=== PATIENT | male | born 1995 | race Caucasian/White ===

== ENCOUNTER → 2023-11-17 11:33 | Outpatient (REF) | payer OTHER, SELFPAY | LOC: REG 11:33 | PROVIDERS: ATTENDING PHYSICIAN Family Medicine | DX: M54.2 Cervicalgia (principal) | CPT/HCPCS: 72050 ==

== ENCOUNTER 2024-01-12 14:28 | Emergency (ER) | payer OTHER, SELFPAY ==
[2024-01-12 14:30] VITALS: BP 168/104
[2024-01-12 14:50] LABS: % Basophils 0.8 % (0-2); % Eosinophils 0.8 % (0-6); % Immature Granulocytes 0.4 % (0-0.5); % Lymphocytes 22.2 % (20.5-51.1); % Neutrophils 68.8 % (42.2-75.2); Absolute Lymphocytes 1.2 10^3/uL (1.2-3.4); Absolute Monocytes 0.4 10^3/uL (0.1-0.6); Absolute Neutrophils 3.6 10^3/uL (1.4-6.5); Hematocrit 43.3 % (39.0-52.0); Hemoglobin 15.6 g/dL (13.0-18.0); Mean Corpuscular Hgb 31.6 pg (27.0-31.0); Mean Corpuscular Volume 87.7 fL (80.0-94.0); Mean Platelet Volume 10.2 fL (7.4-10.4); Nucleated Red Blood Cells % 0 % (-); Platelet Count 160 10^3/uL (130-400); Red Blood Cell Count 4.94 10^6/uL (4.70-6.10); Red Cell Dist. Width 11.5 % (11.5-14.5); White Blood Cell Count 5.3 10^3/uL (4.8-10.8)
[2024-01-12 15:01] LABS: ALT (SGPT) 28 U/L (0-50); AST (SGOT) 26 U/L (17-59); Albumin 5.2 g/dl (3.5-5.0); Alkaline Phosphatase 58 U/L (38-126); Blood Urea Nitrogen 12 mg/dl (9-20); Carbon Dioxide 28 mmol/L (22-30); Chloride 102 mmol/L (98-107); Glucose 130 mg/dl (70-99); Potassium 4.6 mmol/L (3.5-5.1); Sodium 141 mmol/L (135-145); Total Bilirubin 0.7 mg/dl (0.2-1.3); Total Protein 7.6 g/dl (6.3-8.2); eGFR > 60.00
[2024-01-12 15:13] LABS: Troponin I < 0.012 ng/ml
[2024-01-12 16:35] LABS: D-Dimer < 0.27 ug/mlFEU (0.00-0.50)
--- NOTE | 2024-01-12 17:07 | ED.GENMED ---
History of Present Illness
General
Chief Complaint: Chest Pain
Source: patient
Exam Limitations: none
Time Seen by Provider: 01/12/24 15:19
Nursing documentation reviewed up to this point in time: agreed with
History of Present Illness
History of Present Illness:
Patient to ED with complaint of ant. chest pain. Symptoms started last night while lying in bed. Reports SOB. Had a similar episode 1 week ago. No aggravating or alleviating factors. Pain does not radiate. No associated n/v/diaphoresis. Brought
self to ED for eval. Currently pain free
Past History
Past History
ED Past Medical History: None
ED Past Surgical History: None
Social History
Tobacco: Non-smoker
Alcohol: None
Review of Systems
Review of Systems
Allergies reviewed?: Yes
All Other Systems: ROS reviewed and negative except as documented in HPI and ROS
Constitutional: Reports no symptoms
EENT: Reports no symptoms
Respiratory: Reports trouble breathing
Cardiac: Reports chest pain
ABD/GI: Reports no symptoms
: Reports no symptoms
Musculoskeletal: Reports no symptoms
Skin: Reports no symptoms
Neurological: Reports no symptoms
Psychiatric: Reports no symptoms
Phy Exam
General Physical Exam
General Presentation: well appearing and no apparent distress
General age: appears stated age
General Skin: warm and dry
General Habitus: normal
General Mental: alert
Cardiovascular Exam
Cardiovascular Exam: regular rate/rhythm and no edema
Pulmonary Exam
Pulmonary Exam: lungs clear, no respiratory distress (Pulse ox 98% RA) and chest non tender
Gastrointestinal Exam
Gastrointestinal Exam: non tender, soft and no organomegaly
Musculoskeletal Exam
Musculoskeletal Exam: full ROM and neuro vasc intact
Skin Exam
Skin Exam: normal color, warm/dry and no rash
Psychiatric Exam
Psychiatric Exam: normal mood/affect
Scores
Heart Score for Chest Pain Patients
STEMI patient?: No
History: Slightly or Non-Suspicious
ECG: Normal
Age: </= 45 years
Risk Factors: No Risk Factors
Troponin: </= Normal Limit
Heart Score for Chest Pain Patients: 0
Heart Score Risk: 2.5% MACE over next 6 weeks
Course
Orders/Labs/Results
Orders:
Orders
01/12/24 14:29
ECG [Electrocardiogram (*1)] Urgent
Reason for Study: Chest Pain
01/12/24 14:30
EKG- Treatment ONCE
01/12/24 14:33
Electrocardiogram (*1) Urgent
Reason for Study: Chest Pain
01/12/24 14:34
EKG- Treatment ONCE
01/12/24 14:39
Complete Blood Count/With Diff Urgent
Comprehensive Metabolic Panel Urgent
Troponin I Urgent
01/12/24 15:53
CR Chest - 2 Views Urgent
Comment:
Reason For Exam: pain, SOB
01/12/24 16:05
D-Dimer Urgent
Abnormal Lab Results
01/12/24
14:39
MCH 31.6 H pg
(27.0-31.0)
Glucose 130 H mg/dl
(70-99)
Albumin 5.2 H g/dl
(3.5-5.0)
01/12/24 14:39
01/12/24 14:39
Vital Signs
Initial and Last Documented VS:
Initial Vital Signs
Pulse Resp BP Pulse Ox
102 18 168/104 96
01/12/24 14:30 01/12/24 14:30 01/12/24 14:30 01/12/24 14:30
Last Documented Vital Signs
Pulse Resp BP Pulse Ox
75 20 168/104 97
01/12/24 16:45 01/12/24 16:45 01/12/24 14:30 01/12/24 16:45
*Radiology
Radiology exam reviewed: radiology read reviewed
*Pulse Oximetry
Patient hypoxic: no
*EKG
Interpretation: normal
Rate: normal
Rhythm: sinus
*Critical Care Note
Total Time (30-74mins, 75-104mins- exclusive of procedures): Not Applicable
ED Attending Note
-
Portions of this chart may have been created with voice recognition software.� Occasional wrong word or��sound alike� substitutions may have occurred due to the inherent limitations of voice recognition software.
Discharge Plan
Departure
Patient Disposition: Home (Routine Discharge)
Date of Disposition: 01/12/24
Time of Disposition: 17:10
Patient with high blood pressure during this ER visit?: No
Condition: Good
Covid-19: Not Applicable
Discharge Problem:
Chest pain
Instructions: Chest Pain That Is Not Caused by the Heart (DC), Chest Pain PCP Follow Up
Prescriptions:
New
omeprazole 40 mg capsule,delayed release(DR/EC)
40 mg PO DAILY Qty: 14 0RF
No Action
cyclobenzaprine 10 MG tablet
10 mg PO BIDPRN PRN (Reason: spasm) Qty: 13 0RF
Referrals:
Deyvi Padron MD [Family Provider] - Follow up in 2-3 days
Interventions
Interventions:
*Risk Screen - Suicide Last Done: 01/12/24 14:30
*General Assessment Last Done: 01/12/24 14:30
*Neglect/Abuse Screening Last Done: 01/12/24 14:30
ED- Cardiac Assessment Last Done: 01/12/24 16:50
Discharge Date and Time
Print Language: SINHALA
== END 2024-01-12 17:18 | disposition home or self-care (01) ==
LOC: EMR 14:28
PROVIDERS: Nurse Practitioner; EMERGENCY PHYSICIAN Emergency Medicine; FAMILY PHYSICIAN Family Medicine
DX: R07.89 Other chest pain (principal); R06.02 Shortness of breath; Z88.0 Allergy status to penicillin; Z88.2 Allergy status to sulfonamides
CPT/HCPCS: 99283; 71046; 80053; 84484; 85025; 85379; 93005

== ENCOUNTER 2024-02-29 22:23 | Emergency (ER) | payer OTHER, SELFPAY ==
[2024-02-29 22:26] VITALS: BP 145/83
[2024-02-29 23:27] VITALS: BP 136/76
--- NOTE | 2024-02-29 23:28 | ED.GENMED ---
History of Present Illness
<RO Ashford - Last Filed: 03/01/24 00:29>
General
Chief Complaint: Abdominal Symptoms
Source: patient
Time Seen by Provider: 02/29/24 23:27
Nursing documentation reviewed up to this point in time: agreed with
History of Present Illness
History of Present Illness:
A 28-year-old male presents to the emergency department for vomiting and diarrhea for the last 3 hours. The patient states the vomit was 'black and red sludge'. The patient states the first 2 bouts of vomiting were black and red in the third was
clear watery. The patient also admits to 4 episodes of diarrhea to which he reports is dark brown in consistency. Lastly he also admits to abdominal pain over the last 3 hours which is crampy without radiation. Denies dizziness, chest pain, fever,
chills.
The patient reports no past medical history. However, the patient states that earlier today he had 3 shots of tequila, but he states that he only drinks occasionally, about twice a week. The patient states that he currently takes no daily
medications and admits to taking ibuprofen twice within the last month. The patient denies a travel history or any recent sicknesses or sick contacts.
Past History
<RO Ashford - Last Filed: 03/01/24 00:29>
Past History
ED Past Medical History: None
ED Past Surgical History: None
Social History
Tobacco: Non-smoker
Alcohol: Occasional
Drug: None
Family History
Family History: Unable to obtain (unknown to patient )
Review of Systems
<RO Ashford - Last Filed: 03/01/24 00:29>
Review of Systems
Constitutional: Reports no symptoms
EENT: Reports no symptoms
Cardiac: Reports no symptoms
ABD/GI: Reports abdominal pain
: Reports no symptoms
Musculoskeletal: Reports no symptoms
Skin: Reports no symptoms
Neurological: Reports no symptoms
Endocrine: Reports no symptoms
Hematologic/Lymphatic: Reports no symptoms
Psychiatric: Reports no symptoms
Phy Exam
<RO Ashford - Last Filed: 03/01/24 00:29>
General Physical Exam
General Presentation: well appearing and no apparent distress
General age: appears stated age
General Skin: warm and dry
General Habitus: normal
General Mental: alert and anxious
General Hydration: appears well hydrated
ENT Exam
ENT Exam: pharynx normal
Eye Exam
Eye Exam: PERRL
Cardiovascular Exam
Cardiovascular Exam: no gallop, no murmur, normal peripheral pulses and other (Tachycardic )
Heart Sounds: normal
Pulmonary Exam
Pulmonary Exam: lungs clear, no respiratory distress, no rales, no crackles, no wheezing and no cough
Gastrointestinal Exam
Gastrointestinal Exam: normal bowel sounds, soft and non distended
Palpation: left upper quadrant: No tenderness, left lower quadrant: No tenderness, right upper quadrant: No tenderness and right lower quadrant: Mild tenderness and Moderate tenderness
Rectal Exam: normal external exam and normal sphincter tone
Guaiac Status: negative
Course
<Juan Francisco Jean [facility] - Last Filed: 03/01/24 00:29>
Orders/Labs/Results
Orders:
Orders
02/29/24 23:16
IV Insert/Care/Rem.- Treatment PRN
02/29/24 23:29
Complete Blood Count/With Diff Urgent
Comprehensive Metabolic Panel Urgent
Lipase Urgent
03/01/24 00:13
0.9% Sodium Chloride 1000 ml [Nss] 1,000 ml IV BOLUS
Pantoprazole [Protonix IV] 80 mg IV NOW STA
03/01/24 00:17
CT Abd/pelvis W Iv Cont Urgent
Comment:
Reason For Exam: abd pain, diarrhea, vomiting blood
Abnormal Lab Results
02/29/24
23:29
MPV 10.5 H fL
(7.4-10.4)
Absolute Neuts (auto) 7.8 H 10^3/uL
(1.4-6.5)
Absolute Lymphs (auto) 1.0 L 10^3/uL
(1.2-3.4)
Neutrophils % 83.7 H %
(42.2-75.2)
Lymphocytes % 10.2 L %
(20.5-51.1)
Glucose 110 H mg/dl
(70-99)
Albumin 5.4 H g/dl
(3.5-5.0)
02/29/24 23:29
02/29/24 23:29
Vital Signs
Initial and Last Documented VS:
Initial Vital Signs
Temp Pulse Resp BP Pulse Ox
94.2 F L 114 16 145/83 98
02/29/24 22:26 02/29/24 22:26 02/29/24 22:26 02/29/24 22:26 02/29/24 22:26
Last Documented Vital Signs
Temp Pulse Resp BP Pulse Ox
98.7 F 94 16 137/75 96
03/01/24 03:13 03/01/24 03:13 03/01/24 03:13 03/01/24 03:13 03/01/24 03:13
<Sarai Soliz DO - Last Filed: 03/01/24 04:14>
Orders/Labs/Results
Orders:
Orders
02/29/24 23:16
IV Insert/Care/Rem.- Treatment PRN
02/29/24 23:29
Complete Blood Count/With Diff Urgent
Comprehensive Metabolic Panel Urgent
Lipase Urgent
03/01/24 00:13
0.9% Sodium Chloride 1000 ml [Nss] 1,000 ml IV BOLUS
Pantoprazole [Protonix IV] 80 mg IV NOW STA
03/01/24 00:17
CT Abd/pelvis W Iv Cont Urgent
Comment:
Reason For Exam: abd pain, diarrhea, vomiting blood
Abnormal Lab Results
02/29/24
23:29
MPV 10.5 H fL
(7.4-10.4)
Absolute Neuts (auto) 7.8 H 10^3/uL
(1.4-6.5)
Absolute Lymphs (auto) 1.0 L 10^3/uL
(1.2-3.4)
Neutrophils % 83.7 H %
(42.2-75.2)
Lymphocytes % 10.2 L %
(20.5-51.1)
Glucose 110 H mg/dl
(70-99)
Albumin 5.4 H g/dl
(3.5-5.0)
02/29/24 23:29
02/29/24 23:29
Vital Signs
Initial and Last Documented VS:
Initial Vital Signs
Temp Pulse Resp BP Pulse Ox
94.2 F L 114 16 145/83 98
02/29/24 22:26 02/29/24 22:26 02/29/24 22:26 02/29/24 22:26 02/29/24 22:26
Last Documented Vital Signs
Temp Pulse Resp BP Pulse Ox
98.7 F 94 16 137/75 96
03/01/24 03:13 03/01/24 03:13 03/01/24 03:13 03/01/24 03:13 03/01/24 03:13
<RO Ashford - Last Filed: 03/01/24 00:29>
MDM/Problems Addressed
Differential Diagnosis Includes:
unspecified colitis, Gastric ulcer, Salena jaime tear
<RO Ashford - Last Filed: 03/01/24 00:29>
*Critical Care Note
Total Time (30-74mins, 75-104mins- exclusive of procedures): Not Applicable
<Sarai Soliz DO - Last Filed: 03/01/24 04:14>
*Radiology
Radiology exam reviewed: radiology read reviewed (CT of the abdomen pelvis is unremarkable)
*Pulse Oximetry
Patient hypoxic: no
*Educational Therapist Interpretation
Rate: tachycardiac
Interpretation: abnormal
Rhythm: sinus
ED Attending Note
<RO Ashford - Last Filed: 03/01/24 00:29>
-
Portions of this chart may have been created with voice recognition software.� Occasional wrong word or��sound alike� substitutions may have occurred due to the inherent limitations of voice recognition software.
<Sarai Soliz DO - Last Filed: 03/01/24 04:14>
ED Attending Note
Patient seen and examined by attending physician: Yes
I performed the substantive portion of visit, reviewed & personally made and approve the management plan that is documented in note by myself or LOU.: Yes
ED Attending Note:
This is a 28-year-old male with no significant past medical history who presents with somewhat abrupt onset of nonbloody diarrhea, crampy abdominal pain that began around 9 PM tonight then progressed to nausea and reports 2 episodes of vomiting of
black 'sludgelike material' with streaks of red. He then drank some water and vomited an additional time that was productive of only water, no blood streaks. No history of similar episodes in the past. He did present to this ED early January
with complaints of chest pain most noted at nighttime. ED evaluation unremarkable including unremarkable EKG, unremarkable laboratory studies including negative troponin, negative D-dimer. Chest pain thought to be acid reflux and he admits to
significantly reducing NSAID use, significantly reducing alcohol use since then with marked improvement. He does occasionally suffer with some chest pain which generally promptly resolves with antacids/Tums for which he takes perhaps twice per week.
No recent travel. No recent antibiotic use. Takes no anticoagulants.
No close contacts with similar symptoms.
GENERAL: 28-year-old male appears his stated age, awake and alert, appears very mildly anxious but easily communicative. Mother is accompanying.
EYE: anicteric
NECK: Supple, nontender, no meningismus, no significant adenopathy.
ENT: oral mucosa is moist. No rhinorrhea.
CARDIAC: Regular rhythm, mildly tachycardic. no murmur.
LUNGS: Clear breath sounds bilaterally, no acute respiratory distress, no wheezes/rales/rhonchi
ABDOMEN: Soft, nondistended, minimal tenderness right lower quadrant with deep palpation only, no r/g, no cvat. normoactive BS. No palpable masses. Rectal exam performed by PA student under my direct supervision, no stool per vault, heme-negative.
NEUROLOGICAL: Alert and oriented x3, no focal neuro deficits. Gait is steady.
SKIN: Warm and dry, normal color, skin intact. No rash.
MUSCULOSKELETAL: No C/C/E. peripheral pulses are full and equal b/l. No palpable tenderness.
PSYCH: Mildly apprehensive, easily communicative and cooperative.
Concern for acute upper GI bleed, gastritis, acute gastroenteritis, colitis. Appendicitis is less likely.
Noted to be mildly tachycardic otherwise hemodynamically stable. Initial mild hypothermia has promptly resolved upon recheck.
Will check labs, initiate IV fluids as well as IV Protonix.
Will plan for CT abdomen pelvis with IV contrast.
03/01/2024 0313 AM
Patient resting comfortably, has had no return of nausea nor vomiting, no diarrhea since arrival to the ED.
Labs are unremarkable as is CT abdomen pelvis.
Will trial oral fluids.
03/01/2024 0409 AM
Patient tolerating oral fluids well without return of nausea nor abdominal pain or diarrhea.
Will discharge to home with prescription for Protonix.
Recommend limiting diet to clear liquids today, slowly advance as tolerated.
Continue to avoid NSAIDs.
Will refer to GI for follow-up.
Return precautions discussed.
Discharge Plan
Departure
Patient Disposition: Home (Routine Discharge)
Date of Disposition: 03/01/24
Time of Disposition: 04:10
Patient with high blood pressure during this ER visit?: No
Condition: Good
Discharge Problem:
Acute gastroenteritis, possible hematemesis
Instructions: Viral gastroenteritis in adults, Clear Liquid Diet
Prescriptions:
New
pantoprazole [Protonix] 40 mg tablet,delayed release (DR/EC)
40 mg PO DAILY Qty: 30 0RF
No Action
cyclobenzaprine 10 MG tablet
10 mg PO BIDPRN PRN (Reason: spasm) Qty: 13 0RF
omeprazole 40 mg capsule,delayed release(DR/EC)
40 mg PO DAILY Qty: 14 0RF
Referrals:
Nunu Guerrero MD [Active] - Call in 1-3 days for appt
Deyvi Padron MD [Family Provider] - Call in 1-3 days for appt
Interventions
Interventions:
*Risk Screen - Suicide Last Done: 02/29/24 22:26
*Neglect/Abuse Screening Last Done: 02/29/24 22:26
NP-Lynugl-Acutjpymwh Assessment Last Done: 02/29/24 23:39
Discharge Date and Time
Print Language: KINYARWANDA
[2024-02-29 23:30] VITALS: BMI 27.8
[2024-02-29 23:37] LABS: % Basophils 0.3 % (0-2); % Eosinophils 0.1 % (0-6); % Immature Granulocytes 0.3 % (0-0.5); % Lymphocytes 10.2 % (20.5-51.1); % Monocytes 5.4 % (1.7-9.3); % Neutrophils 83.7 % (42.2-75.2); Absolute Monocytes 0.5 10^3/uL (0.1-0.6); Absolute Neutrophils 7.8 10^3/uL (1.4-6.5); Hematocrit 42.1 % (39.0-52.0); Hemoglobin 15.4 g/dL (13.0-18.0); Mean Corp Hgb Conc. 36.6 g/dL (33.0-37.0); Mean Corpuscular Hgb 30.6 pg (27.0-31.0); Mean Corpuscular Volume 83.7 fL (80.0-94.0); Mean Platelet Volume 10.5 fL (7.4-10.4); Nucleated Red Blood Cells % 0 % (-); Platelet Count 178 10^3/uL (130-400); Red Blood Cell Count 5.03 10^6/uL (4.70-6.10); Red Cell Dist. Width 11.7 % (11.5-14.5); White Blood Cell Count 9.3 10^3/uL (4.8-10.8)
[2024-02-29 23:51] LABS: ALT (SGPT) 29 U/L (0-50); AST (SGOT) 29 U/L (17-59); Albumin 5.4 g/dl (3.5-5.0); Alkaline Phosphatase 61 U/L (38-126); Blood Urea Nitrogen 16 mg/dl (9-20); Calcium 10.2 mg/dl (8.4-10.2); Carbon Dioxide 27 mmol/L (22-30); Chloride 99 mmol/L (98-107); Estimated Creatinine Clearance 104 ml/min; Glucose 110 mg/dl (70-99); Lipase 74 U/L (23-300); Potassium 4.6 mmol/L (3.5-5.1); Sodium 141 mmol/L (135-145); Total Bilirubin 0.5 mg/dl (0.2-1.3); Total Protein 7.9 g/dl (6.3-8.2); eGFR > 60.00
[2024-03-01] VITALS: BP 126/71
[2024-03-01] MEDS: NSS 1000 IV (00:21)
[2024-03-01] MEDS: PROTONIX IV 80 MG IV (00:22)
[2024-03-01 00:25] VITALS: BP 136/78
[2024-03-01 00:26] VITALS: BP 136/78
[2024-03-01 01:00] VITALS: BP 127/77
[2024-03-01 02:28] VITALS: BP 137/75
[2024-03-01 03:13] VITALS: BP 137/75
== END 2024-03-01 04:41 | disposition home or self-care (01) ==
LOC: EMR 22:23
PROVIDERS: EMERGENCY PHYSICIAN Emergency Medicine; FAMILY PHYSICIAN Family Medicine
DX: K52.9 Noninfective gastroenteritis and colitis, unspecified (principal)
CPT/HCPCS: 96374; 96361; 99284; 74177; 80053; 83690; 85025; Q9967

== ENCOUNTER 2024-05-14 06:32 | Day surgery (SDC) | payer OTHER, SELFPAY | END 2024-05-14 14:48 | disposition home or self-care (01) | LOC: GI 06:32 | PROVIDERS: ATTENDING PHYSICIAN Student in an Organized Health Care Education/Training Program; FAMILY PHYSICIAN Family Medicine | DX: R10.13 Epigastric pain (principal); R14.0 Abdominal distension (gaseous); K29.50 Unspecified chronic gastritis without bleeding | CPT/HCPCS: 43239; 88305; 88342 ==